=== PATIENT | female | born 1980 | race Caucasian/White ===

== ENCOUNTER 2017-08-17 11:00 | Outpatient (CLI) | payer OTHER ==
--- NOTE | 2017-08-17 13:11 | ULT ---
PELVIC ULTRASOUND: DATE: 08/17/17. HISTORY: Right ovarian cyst. History of partial hysterectomy. FINDINGS: Multiple transabdominal and endovaginal sonographic images of the pelvis are obtained. FINDINGS: The uterus and left ovary are not visualized. The patient reports a history of hysterectomy and left oophorectomy. The right ovary demonstrates a normal sonographic appearance with peripheral follicles seen. The rig ht ovary measures 4 cm x 2.1 cm x 2.2 cm. Doppler evaluation of the right ovary with spectral analysis and color flow evaluation does demonstra te arterial flow. No free fluid is seen in the cul-de-sac. IMPRESSION: 1. Normal-appearing right ovary with dominant follicles demonstrated. Arterial flow is documented i n the right ovary. 2. Nonvisualization of the uterus and left ovary related to patient's reported history of prior hyst erectomy and left oophorectomy. POS: NAKIA
== END 2017-08-17 11:01 | disposition home or self-care (01) ==
LOC: NAV ULT 11:00
PROVIDERS: ATTEND Family Medicine
DX: Z87.42 Personal history of other diseases of the female genital tract (principal); Z90.710 Acquired absence of both cervix and uterus; Z90.721 Acquired absence of ovaries, unilateral
CPT/HCPCS: 76856